=== PATIENT | male | born 1990 | race Hispanic/Latino ===

== ENCOUNTER 2022-07-16 11:23 | Outpatient (CLI) | payer SELFPAY | END 2022-07-16 11:24 | disposition home or self-care (01) | LOC: LABBT 11:23 | PROVIDERS: ATTEND Orthopaedic Surgery | DX: Z20.822 Contact with and (suspected) exposure to COVID-19 (principal) | CPT/HCPCS: 87811 ==

== ENCOUNTER 2022-07-29 15:48 | Outpatient (CLI) | payer SELFPAY | END 2022-07-29 15:49 | disposition home or self-care (01) | LOC: LABBT 15:48 | PROVIDERS: ATTEND Family Medicine | DX: Z20.822 Contact with and (suspected) exposure to COVID-19 (principal) | CPT/HCPCS: 87811 ==

== ENCOUNTER 2022-07-30 12:13 | Day surgery (SDC) | payer OTHER ==
[2022-07-29 16:58] VITALS: BMI 39.9
[2022-07-30] MEDS ORDERED: Midazolam HCl 2 mg/2 ml Vial ONE (13:33)
[2022-07-30] MEDS ORDERED: Fentanyl 100 MCG/2 ML VIAL ONE (13:33)
[2022-07-30] MEDS ORDERED: Dexmedetomidine 200 MCG/2 ML VIAL ONE (16:20)
[2022-07-30] MEDS ORDERED: fentaNYL Citrate/PF 100 MCG/2 ML SYRINGE ONE (16:41)
[2022-07-30] MEDS ORDERED: Ondansetron PF 4 MG/2 ML Vial ONE ×2 (16:44→17:00)
[2022-07-30] MEDS ORDERED: CEFAZOLIN 2 GM VIAL ONE (16:50)
[2022-07-30] MEDS ORDERED: Sodium Chloride 0.9% 100 ML ONE (16:50)
[2022-07-30] MEDS ORDERED: Ropivacaine 0.5% HCl/PF (150 MG/30 ML VIAL) ONE (17:00)
[2022-07-30] MEDS ORDERED: Ketorolac Tromethamine 30 MG/ML VIAL ONE (17:00)
[2022-07-30] MEDS ORDERED: PROPOFOL 200 MG/20 ML VIAL ONE (17:00)
[2022-07-30] MEDS ORDERED: PROPOFOL 20 ML ONE (17:30)
== END 2022-07-30 20:01 | disposition home or self-care (01) ==
LOC: SDC 12:13
PROVIDERS: ATTEND Orthopaedic Surgery
PROC: 0PSJ04Z Reposition Left Radius with Internal Fixation Device, Open Approach (ICD-10-PCS; principal; 2022-07-30)
DX: S52.532A Colles' fracture of left radius, initial encounter for closed fracture (principal); Z79.899 Other long term (current) drug therapy; Z20.822 Contact with and (suspected) exposure to COVID-19; V89.2XXA Person injured in unspecified motor-vehicle accident, traffic, initial encounter
CPT/HCPCS: 76000; C1713; J0690; J1885; J2250; J2405; J2704; J2795; J3010; J3490